=== PATIENT | female | born 1995 | race Asian ===

== ENCOUNTER 2020-03-16 16:34 | Emergency (ER) | payer MEDICAID ==
[~2020-03-16] VITALS: Ht 170.2 cm; Wt 64.4 kg
[2020-03-16 17:00] VITALS: Ht 170.2 cm; Wt 64.4 kg
[2020-03-16 17:23] LABS: BASOPHIL % 0.6 % (0-2); PLATELET COUNT 272 x10^3mcL (130-400); RED CELL DISTRIBUTION WIDTH 12.5 % (11.5-14.5)
[2020-03-16 17:29] LABS: CALCIUM 8.8 mg/dL (8.5-10.1); CARBON DIOXIDE 25.1 mmol/L (21-32); CHLORIDE SERUM 106 mmol/L (98-107); CREATININE SERUM 0.8 mg/dL (0.6-1.0); GFR1 > 60 mL/min; GLUCOSE SERUM 82 mg/dL (74-106); POTASSIUM SERUM 3.9 mmol/L (3.5-5.1); SODIUM SERUM 142 mmol/L (136-145)
[2020-03-16 17:41] LABS: ALBUMIN 3.9 g/dL (3.4-5.0); ALKALINE PHOSPHATASE 52 U/L (46-116); ALT/SGPT 15 U/L (14-59); AST/SGOT 10 U/L (15-37); BILIRUBIN TOTAL 0.5 mg/dL (0.20-1.00); LIPASE 143 IU/L (73-393); TOTAL PROTEIN, SERUM 7.4 g/dL (6.4-8.2)
[2020-03-16 17:42] LABS: microscopic required? NO
[2020-03-16 17:49] LABS: UA SPECIFIC GRAVITY >=1.030 (1.005-1.035); urine erythrocyte NEGATIVE (NEGATIVE)
[2020-03-16 18:37] VITALS: BP 104/68
== END 2020-03-16 18:37 | disposition home or self-care (01) ==
LOC: ED 16:34
PROVIDERS: Emergency Medicine
DX: R10.33 Periumbilical pain (principal); R11.0 Nausea